=== PATIENT | male | born 1990 | race Asian ===

== ENCOUNTER 2021-07-05 23:59 | Emergency (ER) | payer OTHER ==
[~2021-07-05] VITALS: Ht 165.1 cm; Wt 73.0 kg
[2021-07-06 00:25] VITALS: BP 127/81
== END 2021-07-06 00:46 | disposition home or self-care (01) ==
LOC: ER 23:59
DX: S01.81XA Laceration without foreign body of other part of head, initial encounter (principal); W01.0XXA Fall on same level from slipping, tripping and stumbling without subsequent striking against object, initial encounter; Y93.89 Activity, other specified; Y92.238 Other place in hospital as the place of occurrence of the external cause; Y99.0 Civilian activity done for income or pay
CPT/HCPCS: 99281